=== PATIENT | male | born 1950 | race Caucasian/White ===

== ENCOUNTER 2019-05-09 19:08 | Emergency (ER) | payer MEDICARE ==
[~2019-05-09] VITALS: Ht 177.8 cm; Wt 130.5 kg
[2019-05-09 19:20] VITALS: BP 150/74
[2019-05-09] MEDS ORDERED: SIMV20TA3 PO (19:38)
[2019-05-09] MEDS ORDERED: TAMS-11 PO (19:38)
[2019-05-09] MEDS ORDERED: PLEASE ENTER ALLERGIES MC SCH (20:00)
== END 2019-05-09 20:39 | disposition home or self-care (01) ==
LOC: ED 20:00
DX: L50.0 Allergic urticaria (principal); L50.9 Urticaria, unspecified; Z87.891 Personal history of nicotine dependence
CPT/HCPCS: 99283; J7512